=== PATIENT | male | born 1950 | race Caucasian/White ===

== ENCOUNTER → 2020-04-10 11:41 | Outpatient (CLI) | payer OTHER, SELFPAY ==
--- NOTE | ~2020-04-10 | XR_ITS ---
XR lumbar spine 2-3V DATE: 04/10/2020 12:25 INDICATION: Low back pain TECHNIQUE: AP, lateral, coned lateral lumbosacral views COMPARISON: None FINDINGS: There is diffuse idiopathic skeletal hyperostosis of the lower thoracic spine. Diffuse osteopenia. There is mild to moderate degenerative disc disease throughout the lumbar and lumbosacral spine. No fracture or bone destruction or spondylolisthesis. The included lower thoracic and lumbar pedicles are intact. The sacroiliac joints appear normal. There is abdominal aortic calcification. IMPRESSION: Diffuse osteopenia Diffuse idiopathic skeletal hyperostosis of the lower thoracic spine Multilevel degenerative disc disease of the lumbar/lumbosacral spine Reviewed, dictated and finalized at location B. HOSPICE RN
== END ==
PROVIDERS: PCP Internal Medicine; Visit Provider Internal Medicine
DX: M48.15 Ankylosing hyperostosis [Forestier], thoracolumbar region (principal); M47.817 Spondylosis without myelopathy or radiculopathy, lumbosacral region; I70.0 Atherosclerosis of aorta
CPT/HCPCS: 72100

== ENCOUNTER → 2021-05-17 11:17 | Outpatient (CLI) | payer OTHER, SELFPAY ==
--- NOTE | ~2021-05-17 | US_ITS ---
EXAMINATION: US right upper quadrant DATE: 05/17/2021 11:44 INDICATION: Abnormal liver function tests. TECHNIQUE: Multiple grayscale and Doppler ultrasound images of the abdomen were obtained. COMPARISON: None FINDINGS: The pancreas is obscured. There is a 15.2 cm hyperechoic mass in right hepatic lobe. There is normal flow in main portal vein. The gallbladder is normal in size. No gallstones or gallbladder w all thickening. There is no sonographic Lee sign. The common duct is normal and measures 4 mm. IMPRESSION: 1. 15.2 cm mass in the liver. The differential diagnosis includes hepatocellular carcinoma and aneta ioma. Abdomen MRI without and with contrast is recommended. I called this result to Dr. Schneider. Reviewed, dictated and finalized at location A. LBOARD ASSEMBLER IMPRESSION: 1. 15.2 cm mass in the liver. The differential diagnosis includes hepatocellula r carcinoma and hemangioma. Abdomen MRI without and with contrast is recommende d. I called this result to Dr. Schneider.
== END ==
PROVIDERS: PCP Internal Medicine; Visit Provider Internal Medicine
DX: R74.8 Abnormal levels of other serum enzymes (principal); K76.89 Other specified diseases of liver
CPT/HCPCS: 76705

== ENCOUNTER → 2021-05-31 11:49 | Outpatient (CLI) | payer OTHER, SELFPAY ==
--- NOTE | ~2021-05-31 | MR_ITS ---
EXAMINATION: MR abdomen wo/w con INDICATION: Liver mass TECHNIQUE: Coronal SSFSE ARC, WATER:coronal LAVA-FLEX, Coronal 2D FIESTA FatSat, Axial SSFSE BH ARC, Axial 3D DualEcho BH, Axial SSFSE-IR, Axial DWI b=500, Axial 2D FIESTA FatSat, pre and dynamic postco ntrast Axial LAVA ARC, postcontrast Coronal In and Opposed phase LAVA FLEX COMPARISON: Ultrasound, 05/17/2021 CONTRAST: Multihance, 20 cc FINDINGS: There is an approximately 16.9 x 14.2 x 19.5 cm liver mass centered in segment IV. The mass demonstrates heterogeneous T2 signal intensity with areas of increased T2 signal centrally. The area s of mildly increased T2 signal demonstrated mildly decreased T1 signal on precontrast images. There are some focal areas of T1 hyperintensity on precontrast images, suggestive of internal hemorrhage. T here is minimal enhancement of the solid components of the mass. There is caudal displacement of the gallbladder which otherwise appears normal. The spleen, pancreas, and adrenal glands are normal. The kidneys are unremarkable. No pathologically enlarged abdominal lymph nodes are identified. There are no dilated loops of bowel. IMPRESSION: 1. Liver mass as described above. Differential includes hepatocellular carcinoma, fibrolamellar carci noma, and focal nodular hyperplasia. Atypical hemangioma is considered less likely. Biopsy is recomme nded. Reviewed, dictated and finalized at location F. ATER IMPRESSION: 1. Liver mass as described above. Differential includes hepatocellular carcinom a, fibrolamellar carcinoma, and focal nodular hyperplasia. Atypical hemangioma is considered less likely. Biopsy is recommended.
[2021-05-31 12:26] LABS: Estimated Glomerular Filt Rate > 60
== END ==
PROVIDERS: Visit Provider Internal Medicine
DX: R16.0 Hepatomegaly, not elsewhere classified (principal)
CPT/HCPCS: 74183; A9577

== ENCOUNTER 2021-06-14 02:09 | Outpatient (CLI) | payer OTHER, SELFPAY ==
[2021-06-09 13:20] VITALS: BMI 31.9
--- NOTE | 2021-06-09 13:31 | PC.NURSE ---
Report to the Outpatient Waiting Room, entrance under the green pavilion located off [facility], at time __07 on date __06/14/21 . OR Time: . - You and your visitor will be asked a series of questions to screen for COVID 19 for your protection. - A mask is required within the hospital. - NO visitors are allowed at this time. Patient visitors will be guided where to wait when not with patient. Preoperative COVID Testing Requirements: No COVID Test needed if: (proof is required; if not received patient will have Rapid Test prior to entry) - Patient has received COVID Vaccine at least 14 days prior to procedure date or - Patient has positive COVID test result within last 90 days of surgery date. COVID Test needed if above criteria is not met If not COVID vaccinated a COVID test must be conducted within 72 hours of surgery and patient is asked to isolate self from time of testing until procedure. You will go to the [facility] Testing Site for your COVID testing. The [facility] is located at the corner of [address] from [facility]. You will only be called if COVID results are positive and your surgeon may reschedule your elective surgery date. - No food/liquids from 0330 until time of procedure - Infants may have breast milk until 4 hours before surgery, infant formula 6 hours prior to surgery. - Children will be allowed to drink immediately following surgery. If applicable, please bring a bottle or sippy cup to assist with drinking. Juice, water, soda, and popsicles are readily available. For infants on formula, please bring formula the day of surgery. Pacifiers are allowed. Take the following medications with a SIP of water the morning of surgery: ___REGULAR RX MEDICATIONS Medications to discontinue per physician Date to take last dose Please no make-up, nail peruvian, hairspray, perfume, deodorant, or body powder the day of surgery. No jewelry (including any body piercings) or valuables the day of surgery, leave them at home. Please take a shower or bath the night before, or the morning of, surgery with an antibacterial soap. Wear comfortable, loose fitting clothing. Children are encouraged to wear pajamas. - Jewelry must be removed prior to entering the operating room. Rings and piercings that are not removed may be cut off. - The hospital will not accept responsibility for valuables. - Please leave all valuables, including medications, at home the day of surgery. If you are going home after surgery, a licensed otr owner operator truck driver must drive you home. - NO public transportation without another adult. - We recommend that an adult stay with you for 24 hours following discharge. - We also recommend that you do not drive, make important decision, drink alcoholic beverages, or take any drugs that were not prescribed by your health care provider for at least 24 hours after your discharge time. For Pediatric surgeries, we recommend two adults accompany the child home (only one inside the building at this time). Follow any additional instructions given to you from your surgeon. Telephone instructions given to ____PT and asked if any additional questions and then verbalized understanding. Patient advised to call surgeon office or pre surgery nurse liaison [phone] if any additional questions.
[2021-06-14] VITALS (12 sets, daily range): BP systolic 84–132; BP diastolic 49–69; PULSE 69–79; RESP 16–18; TEMP 36.1–36.9; O2SAT 91–96
--- NOTE | ~2021-06-14 | US_ITS ---
EXAMINATION: US biopsy liver DATE: 06/14/2021 10:02 INDICATION: Liver mass. TECHNIQUE: The procedure including the risks, benefits, and alternatives was discussed with the patie nt. Risks discussed included bleeding and infection. The patient understood the risks and agreed to p roceed. The skin overlying the liver was prepped and draped in usual sterile fashion. Anesthetic was administered with 1% lidocaine subcutaneously. An 18 gauge core biopsy needle was then used to obta in 3 core biopsy specimens under continuous sonographic guidance. The entry site was cleaned and dres sed. There were no immediate complications. FINDINGS: Ultrasound images demonstrate the needle in a 20 cm liver mass. IMPRESSION: 1. Ultrasound-guided core needle biopsy of a liver mass. Reviewed, dictated and finalized at location A. [employer]
[2021-06-14 08:16] LABS: Hematocrit 39.5 % (42.0-52.0); Hemoglobin 13.4 g/dL (14.0-18.0); Mean Corpuscular HGB Conc 33.9 g/dl (32-36); Mean Corpuscular Hemoglobin 32.4 pg (26-34); Mean Corpuscular Volume 95.6 fl (80-100); Platelet Count Result 233 k/mm3 (150-375); Red Blood Count 4.13 M/mm3 (4.6-6.20); Red Cell Distribution Width 13.5 % (11.5-14.5); White Blood Count 6.2 K/mm3 (4.5-10.0)
[2021-06-14 08:38] LABS: INR 0.9; Prothrombin Time 12.3 Seconds (11.1-14.7)
== END 2021-06-14 14:02 | disposition home or self-care (01) ==
PROVIDERS: PCP Internal Medicine; Visit Provider Radiology Diagnostic Radiology
PROC: BF45ZZZ Ultrasonography of Liver (ICD-10-PCS; CPT 47000; principal; 2021-06-14 09:30)
DX: C22.8 Malignant neoplasm of liver, primary, unspecified as to type (principal); R94.5 Abnormal results of liver function studies
CPT/HCPCS: 36415; 47000; 76942; 85027; 85610; 88307; 88312; 88313

== ENCOUNTER 2021-09-23 09:42 | Emergency (ER) | payer OTHER, SELFPAY ==
[2021-09-23] VITALS (30 sets, daily range): BP systolic 104–124; BP diastolic 65–72; PULSE 56–90; RESP 12–22; TEMP 36.8; O2SAT 95–100
--- NOTE | ~2021-09-23 | CT_ITS ---
EXAMINATION: CT abdomen pelvis w con DATE: 09/23/2021 14:10 INDICATION: Low abdominal pain. TECHNIQUE: Computed tomography (CT) of the abdomen and pelvis was performed with 100 mL Omnipaque 350 intravenous contrast. Automated exposure control and iterative reconstruction technique were employe d. The dose-length product was 1133.15 mGy-cm. COMPARISON: Abdomen MRI 05/31/2021 FINDINGS: The visualized portions of the lung bases demonstrate mild atelectasis. No pleural effusion . The heart size is normal. No pericardial effusion. There is a 21.3 x 14.2 x 13.8 cm mass in the ross er demonstrating heterogeneous attenuation and foci of gas. There is bile duct dilatation in the live r peripheral to the mass. The spleen and gallbladder are normal. There is hypoattenuation in the head and body of the pancreas with adjacent fat stranding. There are calcifications in the pancreas. The adrenal glands and kidneys are normal. The prostate is mildly enlarged. The bladder is decompressed b y a Lemons catheter. There is diverticulosis of the colon without evidence of diverticulitis. The appe ndix is normal. There is a small sliding hiatal hernia. There are no pathologically enlarged lymph no yony. There is no free intraperitoneal fluid. There are calcifications in the penis, consistent with P eyronie's disease. There is mild lumbar spondylosis. There are bridging endplate osteophytes at multi ple levels in the spine, consistent with diffuse idiopathic skeletal hyperostosis (DISH). IMPRESSION: 1. Stable large liver mass, consistent with hepatocellular carcinoma. Foci of gas in the mass can be an expected finding after chemoembolization. No leukocytosis or fever to suggest abscess. 2. Abnormal pancreas, likely chronic pancreatitis or acute on chronic pancreatitis. Correlate with christine gibbs. Reviewed, dictated and finalized at location A. IMPRESSION: 1. Stable large liver mass, consistent with hepatocellular carcinoma. Foci of g as in the mass can be an expected finding after chemoembolization. No leukocyto sis or fever to suggest abscess. 2. Abnormal pancreas, likely chronic pancreatitis or acute on chronic pancreati tis. Correlate with lipase.
[2021-09-23 10:31] LABS: Appearance Urine Clear (Clear); Bilirubin Urine Negative (Negative); Blood Urine 2+ (Negative); Glucose Urine UA Negative (Negative); Ketones Urine Negative (Negative); Leukocyte Esterase Ur Negative LEU/UL (Negative); Nitrate Urine Negative (Negative); Protein Urine Trace mg/dL (Negative); Urobilinogen Urine 0.2 mg/dL (<2.0); pH Urine 5.5 (5.0-9.0)
[2021-09-23 10:33] LABS: Add Urine Microscopic? YES; Color Urine Dark Yellow (Yellow)
[2021-09-23 10:35] LABS: Mucus Urine Rare /lpf; WBC Urine 0-3 /hpf
--- NOTE | 2021-09-23 11:17 | ED.GENADULT ---
HPI - General Adult General Chief complaint: Urogenital-Male Stated complaint: I've got prostate problems Time Seen by Provider: 09/23/21 10:27 Source: patient Mode of arrival: ambulatory Limitations: no limitations History of Present Illness HPI narrative: Patient is a 71-year-old male who presents the ED with report of urinary difficulty. Patient reports he had a chemoembolization of his hepatocellular carcinoma 1 week ago today. He receives care at [facility] under Dr. Mark. He states since the procedure he has had difficulty urinating, dysuria, voiding very small amounts, and urinary frequency. He has never had bladder issues before and denies any history of prostate issues. No gross hematuria. He also reports having lower abdominal and chronic lower back pain. No history of kidney stones that he is aware of. No nausea, vomiting, fever, chills, CP, SOB. Related Data Home Medications Medication Instructions Recorded Confirmed alprazolam 1 mg PO TID PRN 06/09/21 06/14/21 amlodipine 10 mg PO HS 06/09/21 06/14/21 ascorbic acid (vitamin C) [Vitamin 1 cap PO QAM 06/09/21 06/14/21 C] glucosamine sulfate [Glucosamine] 1,000 mg PO DAILY 06/09/21 06/14/21 milk thistle 1,000 mg PO QAM 06/09/21 06/14/21 multivitamin [Multi-Vitamin] 1 tablet PO QAM 06/09/21 06/14/21 olmesartan-hydrochlorothiazide 1 tablet PO QAM 06/09/21 06/14/21 rosuvastatin 20 mg PO QAM 06/09/21 06/14/21 Allergies Allergy/AdvReac Type Severity Reaction Status Date / Time No Known Allergies Allergy Verified 09/23/21 10:00 Review of Systems Review of Systems: CONSTITUTIONAL: Denies fever, chills, or sweats. CARDIOVASCULAR: Denies chest pain. RESPIRATORY: Denies dyspnea. GASTROINTESTINAL: Reports lower ABD pain. Denies nausea, vomiting, or diarrhea. GENITOURINARY: Reports dysuria, urinary frequency, small volume void. Denies gross hematuria. SKIN: Denies rash or itching. MUSCULOSKELETAL: Reports chronic lower back pain. Denies joint pain, or myalgia. NEUROLOGIC: Denies headache, numbness, or weakness. All systems reviewed & are unremarkable except as noted in HPI and below PMFSH Past Medical History Medical History (Updated 09/23/21 @ 17:46 by Judit Porter PA-C) Hepatocellular carcinoma Hypercholesterolemia Hypertension Surgical History Surgical History (Updated 09/23/21 @ 17:48 by Judit Porter PA-C) History of liver biopsy Social History Social History Smoking packs per day: 1 Smoking cigarettes per day: 20.0 Years smoked: 30 Smoking pack-years: 30.00 Smoking status: Former smoker Tobacco type: cigarettes Second hand tobacco smoke exposure: No Smoking end date: 05/22/16 Alcohol intake: current Drinks per week: 14 Substance use: never Substance use type: does not use Spiritual care concerns: No Exam Narrative: GENERAL: Mildly ill appearing, well-nourished, non-toxic, in mild acute distress. Appears uncomfortable and restless. HEAD: Normocephalic, atraumatic. NECK: Supple. No adenopathy, no masses. RESPIRATORY: Airway patent, respirations nonlabored. Clear to auscultation bilaterally, no rales, rhonchi, wheezing. CARDIOVASCULAR: Regular rate and rhythm without murmurs, rubs, or gallops. Radial pulses 2+ and equal bilaterally. ABDOMINAL: Appears mildly distended, but is soft. Normoactive BS. TTP in lower abdomen and suprapubic region. No TTP in upper abdomen. MUSCULOSKELETAL: Moves all extremities. Strength/ROM intact without gross deformities or TTP. No edema. No calf tenderness. SKIN: Warm, dry, pallor. No rashes. NEURO: A&O X3. Speech clear. Cranial nerves II-XII grossly intact. Steady gait. No ataxic movements. PSYCHIATRIC: Appropriate mood and affect. Normal interaction. Course Vital Signs Vital signs: Vital Signs Temperature 98.3 F 09/23/21 09:51 Pulse Rate 89 09/23/21 09:51 Respiratory Rate 20 09/23/21 09:51 Blood
[2021-09-23 11:29] LABS: Basophils Percent Auto 0.4 % (0.2-1.2); Eosinophils Percent Auto 0.2 % (0-4.4); Hematocrit 33.7 % (42.0-52.0); Hemoglobin 11.1 g/dL (14.0-18.0); Immature Granulocyte Absolute 0.11 K/mm3 (0.00-0.031); Immature Granulocyte Percent A 1.2 % (0-0.5); Lymphocytes Absolute Auto 0.46 K/mm3 (0.9-3.2); Lymphocytes Percent Auto 4.8 % (18.3-44.2); Mean Corpuscular HGB Conc 32.9 g/dl (32-36); Mean Corpuscular Hemoglobin 31.8 pg (26-34); Mean Corpuscular Volume 96.6 fl (80-100); Mean Platelet Volume 9.6 fl (7.4-10.4); Monocytes Percent Auto 10.1 % (2.6-8.5); Neutrophils Absolute Auto 7.9 K/mm3 (1.3-6.7); Neutrophils Percent Auto 83.3 % (45.5-73.1); Platelet Count Result 331 k/mm3 (150-375); Red Blood Count 3.49 M/mm3 (4.6-6.20); Red Cell Distribution Width 14.1 % (11.5-14.5); White Blood Count 9.5 K/mm3 (4.5-10.0)
[2021-09-23 11:45] LABS: Albumin Level 3.8 g/dL (3.5-5.1); Alkaline Phosphatase 194 U/L (38-126); Anion Gap 7 mmol/L (8-16); Aspartate Amino Transferase 576 U/L (17-59); Bilirubin,Total 1.8 mg/dL (0.2-1.3); Blood Urea Nitrogen 39 mg/dL (9-20); Calcium 8.2 mg/dL (8.4-10.2); Carbon Dioxide 29 mmol/L (22-30); Chloride 95 mmol/L (98-107); Estimated CRCL calculation 57 ml/min; Estimated Glomerular Filt Rate 60; Glucose 130 mg/dL (65-110); Potassium 3.7 mmol/L (3.4-5.0); Sodium 131 mmol/L (137-145)
[2021-09-23 12:00] LABS: Alanine Aminotransferase 940 U/L (4-50)
[2021-09-23] MEDS: KETOROLAC 30 MG/ML VIAL (*BKC) IV PUSH (12:10)
[2021-09-23] MEDS: SODIUM CHLORIDE 0.9% IV 1,000 ML 999 ML IV CONT (12:10)
[2021-09-23] MEDS: MORPHINE SULFATE (*CRX) 2 MG/ML INJ (12:18)
[2021-09-23] MEDS: MORPHINE SULFATE (*CRX) 2 MG/ML INJ IV PUSH (13:46)
[2021-09-23] MEDS: ONDANSETRON INJ 4 MG/2 ML VIAL IV PUSH (13:48)
[2021-09-23] MEDS: LORazepam INJ (*CRX) 2 MG/ML VIAL 1 MG IV PUSH (13:49)
[2021-09-23 15:53] LABS: Lipase 335 U/L (23-300)
== END 2021-09-23 18:18 | disposition home or self-care (01) ==
PROVIDERS: Physician Assistant; Emergency Provider Emergency Medicine; PCP Internal Medicine
DX: R33.9 Retention of urine, unspecified (principal); C22.0 Liver cell carcinoma; E78.00 Pure hypercholesterolemia, unspecified; I10 Essential (primary) hypertension; Z87.891 Personal history of nicotine dependence
CPT/HCPCS: 36415; 74177; 80053; 81001; 83690; 85025; 96361; 96365; 96375; 96376; 99284; J0131; J1885; J2060; J2270; J2405; J7030; Q9967

== ENCOUNTER 2021-12-20 08:01 | Emergency (ER) | payer SELFPAY ==
[2021-12-20] VITALS (16 sets, daily range): BP systolic 139–159; BP diastolic 69–83; PULSE 68–87; RESP 14–23; TEMP 36.6; O2SAT 93–98
--- NOTE | ~2021-12-20 | CT_ITS ---
EXAMINATION: CT abdomen pelvis w con DATE: 12/20/2021 11:43 INDICATION: Right upper quadrant abdominal pain TECHNIQUE: Computed tomography (CT) of the abdomen and pelvis was performed with 100 mL Omnipaque-300 intravenous contrast. Automated exposure control and iterative reconstruction technique were employe d. The dose-length product was 1381.60 mGy-cm. COMPARISON: 09/23/2021 FINDINGS: Mild elevation of the right hemidiaphragm with with scattered discoid atelectasis in the bilateral lo wer lobes, right greater than left. Size is normal. Atherosclerotic coronary artery calcifications. S mall amount of aortic valve calcific lesion. No pericardial or pleural effusion. Calcified paraesopha geal lymph nodes consistent with old granulomatous disease. There is been some interval decrease in s ize of a heterogeneously enhancing hepatic mass which is decreased from 20.7 x 17.3 x 13.4 cm to curr ently measuring 19.3 x 15.0 x 11.1 cm in corresponding dimensions. Again seen are a few foci of gas w ithin the likely centrally necrotic portion of the mass. There is prominent mass effect upon the port a hepatis with likely secondary mild intrahepatic biliary ductal dilation. Gallbladder is normal. Spl een, bilateral adrenal glands and kidneys are normal. Residual 1.4 x 1.0 cm hypodense region at the n nhung of the pancreas with resolution of the previously more prominent decreased attenuation at the hea d of the pancreas. A few scattered tiny dystrophic pancreatic parenchymal calcifications likely seque la of chronic pancreatitis. Normal appendix. No bowel obstruction. Oral contrast material is seen in the distal small bowel and proximal colon. Moderate diverticulosis with sigmoid and descending colon predominance without adjacent inflammatory stranding to suggest diverticulitis. Bladder is normal. Mi ld prostatomegaly. Dystrophic calcifications along the fascia of the penis consistent with Peyronie's disease. No free intraperitoneal gas or fluid. No pathologically enlarged abdominal or pelvic lympha denopathy. There are bridging osteophytes at multiple levels in the lower thoracic spine, consistent with diffuse idiopathic skeletal hyperostosis (DISH). No suspicious lytic or blastic bone lesions. IMPRESSION: 1. Decrease in size of a large liver mass consistent with hepatocellular carcinoma with decrease in t he amount of gas within the centrally necrotic portion of the mass which may be related to prior chem oembolization 2. Interval improvement of prior acute on chronic pancreatitis with 1.4 x 1.0 cm residual hyperdense region at the neck of the pancreas most likely a small pancreatic pseudocyst. 3. Mild intrahepatic biliary ductal dilation likely secondary to biliary ductal compression at the le amos of ramon hepatis resulting from the hepatic mass. Reviewed, dictated and finalized at location A. IMPRESSION: 1. Decrease in size of a large liver mass consistent with hepatocellular carcin elena with decrease in the amount of gas within the centrally necrotic portion of the mass which may be related to prior chemoembolization 2. Interval improvement of prior acute on chronic pancreatitis with 1.4 x 1.0 c m residual hyperdense region at the neck of the pancreas most likely a small pa ncreatic pseudocyst. 3. Mild intrahepatic biliary ductal dilation likely secondary to biliary ductal compression at the level of ramon hepatis resulting from the hepatic mass.
[2021-12-20 08:26] LABS: Basophils Absolute Auto 0.1 K/mm3 (0.0-0.1); Basophils Percent Auto 0.8 % (0.2-1.2); Eosinophils Absolute Auto 0.1 K/mm3 (0-0.3); Eosinophils Percent Auto 1.1 % (0-4.4); Hematocrit 39.3 % (42.0-52.0); Hemoglobin 12.4 g/dL (14.0-18.0); Immature Granulocyte Absolute 0.03 K/mm3 (0.00-0.031); Immature Granulocyte Percent A 0.4 % (0-0.5); Lymphocytes Absolute Auto 0.94 K/mm3 (0.9-3.2); Lymphocytes Percent Auto 13.1 % (18.3-44.2); Mean Corpuscular HGB Conc 31.6 g/dl (32-36); Mean Corpuscular Volume 88.7 fl (80-100); Mean Platelet Volume 9.6 fl (7.4-10.4); Monocytes Absolute Auto 0.7 K/mm3 (0.1-0.6); Monocytes Percent Auto 10.2 % (2.6-8.5); Neutrophils Absolute Auto 5.4 K/mm3 (1.3-6.7); Neutrophils Percent Auto 74.4 % (45.5-73.1); Platelet Count Result 259 k/mm3 (150-375); Red Blood Count 4.43 M/mm3 (4.6-6.20); Red Cell Distribution Width 15.9 % (11.5-14.5); White Blood Count 7.2 K/mm3 (4.5-10.0)
[2021-12-20 08:42] LABS: Alanine Aminotransferase 26 U/L (6-50); Alkaline Phosphatase 130 U/L (38-126); Anion Gap 13 mmol/L (8-16); Aspartate Amino Transferase 34 U/L (17-59); Bilirubin,Total 0.5 mg/dL (0.2-1.3); Blood Urea Nitrogen 14 mg/dL (9-20); Calcium 9.1 mg/dL (8.4-10.2); Carbon Dioxide 24 mmol/L (22-30); Chloride 105 mmol/L (98-107); Estimated CRCL calculation 83 ml/min; Estimated Glomerular Filt Rate > 60; Glucose 136 mg/dL (65-110); Lipase 234 U/L (23-300); Sodium 142 mmol/L (137-145)
[2021-12-20 09:16] LABS: Partial Thromboplastin Time 30.4 SECONDS (22.3-36.8)
--- NOTE | 2021-12-20 09:28 | ED.ABDPAIN ---
HPI - Abdominal Pain General Chief Complaint: Abdominal Pain Stated Complaint: abd pain Time Seen by Provider: 12/20/21 08:42 Source: patient Mode of arrival: ambulatory Limitations: no limitations History of Present Illness HPI narrative: This is a 71-year-old male that presents to the emergency department for right upper quadrant pain. Ongoing since this morning. Reports the pain is a constant dull ache. He did have some nausea and vomiting last night. He currently has history of liver cancer. Follows with a doctor [facility] at [facility]. He is on an immunotherapy infusion that he receives every 3 weeks. Denies fever or diarrhea. Related Data Home Medications Medication Instructions Recorded Confirmed finasteride 5 mg tablet mg 12/20/21 tamsulosin 0.4 mg capsule mg PO 12/20/21 Allergies Allergy/AdvReac Type Severity Reaction Status Date / Time No Known Allergies Allergy Verified 11/12/21 11:01 Review of Systems Review of Systems: CONSTITUTIONAL: Denies fever GASTROINTESTINAL: Reports abdominal pain, nausea, vomiting. Denies diarrhea. GENITOURINARY: Denies dysuria All systems reviewed & are unremarkable except as noted in HPI and below PMFSH Past Medical History Medical History (Updated 12/20/21 @ 14:14 by Fauzia Aguirre PA-C) Hepatocellular carcinoma Hypercholesterolemia Hypertension Surgical History Surgical History (Updated 09/23/21 @ 17:48 by Judit Porter PA-C) History of liver biopsy Social History Social History Smoking packs per day: 1 Smoking cigarettes per day: 20.0 Years smoked: 30 Smoking pack-years: 30.00 Smoking status: Former smoker Tobacco type: cigarettes Second hand tobacco smoke exposure: No Smoking end date: 05/22/16 Alcohol intake: current Drinks per week: 14 Substance use: never Substance use type: does not use Spiritual care concerns: No Exam Narrative: GENERAL: Well-appearing, well-nourished, and in no acute distress. HEAD: Normocephalic, atraumatic. EYES: EOMI. CHEST: Clear to auscultation. No respiratory distress. No wheezes rales or rhonchi HEART: Regular rate and rhythm. No murmur heard. Normal peripheral pulses. ABDOMEN: Soft, nondistended, normal active bowel sounds. Tender to palpation in the right upper quadrant, without guarding. No CVA tenderness EXTREMITIES: Normal range of motion. No edema. SKIN: Warm, dry, no rash. NEURO: No focal deficits. Alert and oriented x3. PSYCH: Normal mood and affect Course Consultations Consultation #1: Spoke with patient's oncologist nurse about workup Date: 12/20/21 Vital Signs Vital signs: Vital Signs Temperature 97.8 F 12/20/21 08:12 Pulse Rate 80 12/20/21 08:12 Respiratory Rate 20 12/20/21 08:12 Blood Pressure 159/73 H 12/20/21 08:12 Pulse Oximetry 95 12/20/21 08:12 Oxygen Delivery Room Air 12/20/21 08:12 Temperature 97.8 F 12/20/21 08:12 Pulse Rate 72 12/20/21 13:15 Respiratory Rate 20 12/20/21 13:15 Blood Pressure 141/78 H 12/20/21 13:03 Pulse Oximetry 94 12/20/21 13:15 Oxygen Delivery Room Air 12/20/21 08:12 MDM - Abdominal Pain MDM Narrative Medical decision making narrative: Patient presents emergency department for right upper quadrant pain ongoing since this morning. He is afebrile and nontoxic-appearing. His vitals are stable. CBC is without leukocytosis. Does show normocytic anemia with hemoglobin of 12.4. Metabolic panel and lipase without concerning findings. UA without evidence of infection. CT scan of the abdomen and pelvis shows decrease in size of his large liver mass consistent with known hepatocellular carcinoma. She has improvement of prior acute on chronic pancreatitis. She has mild intrahepatic biliary ductal dilation. Patient's bilirubin is normal. Spoke with patient's oncologist nurse about workup. Patient does have an appointment for follow-up in 2
[2021-12-20] MEDS: MORPHINE SULFATE (*CRX) 4 MG/ML INJ IV PUSH (09:35)
[2021-12-20] MEDS: ONDANSETRON INJ 4 MG/2 ML VIAL IV PUSH (09:35)
[2021-12-20] MEDS: SODIUM CHLORIDE 0.9% IV 500 ML 999 ML IV CONT (09:36)
[2021-12-20 10:00] LABS: Add Urine Microscopic? NO; Appearance Urine Clear (Clear); Bilirubin Urine Negative (Negative); Blood Urine Negative (Negative); Color Urine Yellow (Yellow); Glucose Urine UA Negative (Negative); Ketones Urine Negative (Negative); Leukocyte Esterase Ur Negative LEU/UL (Negative); Nitrate Urine Negative (Negative); Protein Urine Negative (Negative); Specific Grav Ur 1.025 (1.001-1.035); Urobilinogen Urine 0.2 mg/dL (<2.0); pH Urine 5.5 (5.0-9.0)
[2021-12-20] MEDS: diazePAM INJ (*CRX) 10 MG/2 ML SYRINGE 5 MG IV PUSH (11:11)
--- NOTE | 2021-12-20 11:23 | PC.NURSE ---
Patient reports he feels like he is going to pass out. environmental monitoring technician applied. DEION Cage notified, no further interventions needed at this time.
== END 2021-12-20 14:45 | disposition home or self-care (01) ==
PROVIDERS: Physician Assistant; Emergency Provider Emergency Medicine; PCP Internal Medicine
DX: C22.0 Liver cell carcinoma (principal); R10.11 Right upper quadrant pain; E78.00 Pure hypercholesterolemia, unspecified; I10 Essential (primary) hypertension; Z87.891 Personal history of nicotine dependence
CPT/HCPCS: 36415; 74177; 80053; 81003; 83690; 85025; 85610; 85730; 96361; 96365; 96375; 99284; J0131; J2270; J2405; J3360; J7040; Q9967